=== PATIENT | female | born 1940 | race Caucasian/White ===

== ENCOUNTER 2016-11-25 12:38 | Emergency (ER) | payer OTHER, MEDICARE ==
[~2016-11-25] VITALS: Ht 160 cm; Wt 90.0 kg
[~2016-11-25 12:38] MED LIST: ALEVE220 M2 PO; AMITIZA24 MICROGR PO; AMLODIPINE BES2.5 MG PO; AMOX TR-K CLV1 EAC4 PO; AMOXICILLIN500 MG PO; ANASPAZ0.125 MG PO; BACTRIM,SEPT1 TABLE1 PO; BENAZEPRIL HCL5 MG PO; BENTYL20 MG PO; CELEXA20 MG PO; CIPRO500 MG PO; CITALOPRAM HBR10 M1 PO; CYANOCOBALAM1000 MCG PO; DICYCLOMINE HCL10 MG PO; DILAUDID2 MG PO; Ecotrin PO; FLAGYL500 MG PO; HYOMAX0.125 MG PO; LEVAQUIN750 MG PO; LEVOTHYROXIN; LEVOTHYROXINE; LEVOTHYROXINE100 MCG PO; Lotensin PO; MOTRIN600 MG PO; NAPROSYN500 MG PO; PRILOSEC20 MG PO; TORADOL10 MG PO; ULTRACET1 TABLET PO; VALIUM2 MG PO; VITAMIN D-32000 UNI2 PO; VITAMIN D32000 UNIT PO; ZOFRAN4 MG PO; [UNRECOGNIZED DRUG - OTHER]
[2016-11-25 15:41] VITALS: BP 123/55
== END 2016-11-25 15:42 | disposition home or self-care (01) ==
LOC: EME → EDBD 12:38 → EME 12:38
DX: S06.0X0A Concussion without loss of consciousness, initial encounter (principal); M54.89 Other dorsalgia; R07.81 Pleurodynia; W01.0XXA Fall on same level from slipping, tripping and stumbling without subsequent striking against object, initial encounter; I10 Essential (primary) hypertension; E03.9 Hypothyroidism, unspecified
CPT/HCPCS: 70450; 71020; 99281; 99284

== ENCOUNTER 2017-01-28 20:08 | Emergency (ER) | payer OTHER, MEDICARE ==
[~2017-01-28] VITALS: Ht 162.6 cm; Wt 90.5 kg
[2017-01-28] MEDS ORDERED: KEFLEX500 MG PO (23:23)
[2017-01-28] MEDS ORDERED: NORCO 5/3251 TABLET PO (23:23)
[2017-01-28 23:35] VITALS: BP 126/86
== END 2017-01-29 00:07 | disposition home or self-care (01) ==
LOC: EME 20:08
DX: L03.115 Cellulitis of right lower limb (principal); I10 Essential (primary) hypertension; K21.9 Gastro-esophageal reflux disease without esophagitis; W19.XXXD Unspecified fall, subsequent encounter; Z88.6 Allergy status to analgesic agent
CPT/HCPCS: 99281; 99284

== ENCOUNTER → 2017-05-11 | Outpatient (CLI) | payer OTHER, MEDICARE ==
[~2017-05-11] VITALS: Ht 164.5 cm; Wt 88.5 kg
[~2017-05-11] MED LIST changes: +B-COMPLEX-VITA1 EACH PO; +BENTYL10 MG PO; +ELIDEL 1% CREAM30 GM TP; +KEFLEX500 MG PO; +MOBIC15 MG PO; +MYRBETRIQ25 MG PO; +NORCO 5/3251 TABLET PO; +TEMOVATE 0.05%30 GM TP; +TYLENOL EXTRA500 MG PO
== END | disposition home or self-care (01) ==
LOC: AMB 08:30
PROC: 0DJD8ZZ Inspection of Lower Intestinal Tract, Via Natural or Artificial Opening Endoscopic (ICD-10-PCS; principal; 2017-05-11)
DX: K57.32 Diverticulitis of large intestine without perforation or abscess without bleeding (principal); K64.8 Other hemorrhoids; Z80.0 Family history of malignant neoplasm of digestive organs; K58.0 Irritable bowel syndrome with diarrhea; K21.9 Gastro-esophageal reflux disease without esophagitis; I10 Essential (primary) hypertension; E78.5 Hyperlipidemia, unspecified; E03.9 Hypothyroidism, unspecified; H35.30 Unspecified macular degeneration; G47.33 Obstructive sleep apnea (adult) (pediatric); M85.80 Other specified disorders of bone density and structure, unspecified site; R73.03 Prediabetes; G25.81 Restless legs syndrome; F40.9 Phobic anxiety disorder, unspecified; Z96.659 Presence of unspecified artificial knee joint; Z90.710 Acquired absence of both cervix and uterus; Z90.49 Acquired absence of other specified parts of digestive tract; Z86.718 Personal history of other venous thrombosis and embolism

== ENCOUNTER 2017-12-09 15:36 | Emergency (ER) | payer OTHER, MEDICARE ==
[~2017-12-09] VITALS: Ht 160 cm; Wt 88.8 kg
[2017-12-09 16:17] LABS: HEMATOCRIT 41.9 % (36.0-46.0); HEMOGLOBIN 13.6 G/DL (11.9-15.5); MCH 30.4 PG (29.0-34.0); MCHC 32.5 G/DL (30.0-36.0); MCV 93.7 FL (83-99); PLATELET COUNT 269 K/uL (156-360); RBC DIS.WIDTH-CV 12.4 % (11.8-14.6); RED BLOOD COUNT 4.47 M/uL (3.80-5.20); WHITE BLOOD COUNT 8.6 K/uL (4.1-10.2)
[2017-12-09 16:25] LABS: ALBUMIN 3.9 g/dL (3.2-4.8); CHLORIDE 105 mEq/L (99-109); POTASSIUM 4.1 mEq/L (3.7-5.4); SODIUM 140 mEq/L (136-147)
[2017-12-09 16:27] LABS: GLUCOSE 102 mg/dL (70-99)
[2017-12-09 16:28] LABS: TOTAL PROTEIN 6.9 g/dL (6.4-8.3)
[2017-12-09 16:29] LABS: TOTAL BILIRUBIN 1.1 mg/dL (0.0-1.0)
[2017-12-09 16:31] LABS: ALKALINE PHOSPHATASE 83 IU/L (3-129); CREATININE 0.8 mg/dL (0.6-1.3); GFR ESTIMATE (CALCULATED) > 59 mL/min/
[2017-12-09 16:32] LABS: UREA NITROGEN (BUN) 9 mg/dL (9-23)
[2017-12-09 16:33] LABS: AST (GOT) 16 IU/L (2-34)
[2017-12-09 16:34] LABS: ALT (GPT) 13 IU/L (3-49)
[2017-12-09 16:38] LABS: LIPASE 24 U/L (1.0-51.0)
[2017-12-09] MEDS ORDERED: ZOFRAN4 MG PO (17:46)
[2017-12-09] MEDS ORDERED: AUGMENTIN875 MG PO (17:46)
[2017-12-09 18:01] VITALS: BP 133/70
== END 2017-12-09 18:01 | disposition home or self-care (01) ==
LOC: EME 15:36
DX: K57.32 Diverticulitis of large intestine without perforation or abscess without bleeding (principal); K58.9 Irritable bowel syndrome, unspecified; R94.31 Abnormal electrocardiogram [ECG] [EKG]; E03.9 Hypothyroidism, unspecified; F41.9 Anxiety disorder, unspecified; Z85.828 Personal history of other malignant neoplasm of skin; Z90.49 Acquired absence of other specified parts of digestive tract; Z96.651 Presence of right artificial knee joint; Z88.5 Allergy status to narcotic agent; Z91.018 Allergy to other foods; Z88.1 Allergy status to other antibiotic agents
CPT/HCPCS: 74177; 80053; 81003; 83690; 85027; 93005; 99281; 99284; J2405; J7040

== ENCOUNTER 2018-02-17 13:49 | Emergency (ER) | payer OTHER, MEDICARE ==
[~2018-02-17] VITALS: Ht 160 cm; Wt 84.4 kg
[~2018-02-17 13:49] MED LIST changes: +AUGMENTIN875 MG PO
[2018-02-17 14:49] LABS: HEMATOCRIT 41.2 % (36.0-46.0); HEMOGLOBIN 13.9 G/DL (11.9-15.5); MCHC 33.7 G/DL (30.0-36.0); MCV 91.8 FL (83-99); PLATELET COUNT 344 K/uL (156-360); RBC DIS.WIDTH-CV 12.7 % (11.8-14.6); RBC DIS.WIDTH-SD 42.9 % (39-53); RED BLOOD COUNT 4.49 M/uL (3.80-5.20); WHITE BLOOD COUNT 7.8 K/uL (4.1-10.2)
[2018-02-17 14:58] LABS: ALBUMIN 3.8 g/dL (3.2-4.8); CHLORIDE 106 mEq/L (99-109); POTASSIUM 3.9 mEq/L (3.7-5.4); SODIUM 141 mEq/L (136-147)
[2018-02-17 15:01] LABS: GLUCOSE 101 mg/dL (70-99); TOTAL PROTEIN 6.5 g/dL (6.4-8.3)
[2018-02-17 15:03] LABS: TOTAL BILIRUBIN 1.2 mg/dL (0.0-1.0)
[2018-02-17 15:04] LABS: ALKALINE PHOSPHATASE 79 IU/L (3-129); CREATININE 0.8 mg/dL (0.6-1.3); GFR ESTIMATE (CALCULATED) > 59 mL/min/
[2018-02-17 15:05] LABS: UREA NITROGEN (BUN) 13 mg/dL (9-23)
[2018-02-17 15:06] LABS: AST (GOT) 18 IU/L (2-34)
[2018-02-17 15:07] LABS: ALT (GPT) 18 IU/L (3-49)
[2018-02-17 15:07] LABS: APPEARANCE CLOUDY ((CLEAR)); BILIRUBIN NEGATIVE; BLOOD NEGATIVE; COLOR AMBER ((YELLOW)); GLUCOSE (STRIP) NEGATIVE; KETONES 5; LEUKOCYTES TRACE; NITRITE NEGATIVE; PROTEIN (STRIP) 30; SPECIFIC GRAVITY 1.028 (1.000-1.030); UROBILINOGEN 0.2 MG/DL (0.2-1.0)
[2018-02-17 15:08] LABS: LIPASE 31 U/L (1.0-51.0)
[2018-02-17 15:29] LABS: RED BLOOD CELLS 0-5 /HPF (0-5)
[2018-02-17 15:30] LABS: EPITHELIAL CELLS 1+ /HPF
[2018-02-17 15:31] LABS: BACTERIA 2+ /HPF; HYALINE CASTS 0-5 /LPF; MUCUS 3+ /LPF; UCUL ADDED? YES
[2018-02-17] MEDS ORDERED: ZOFRAN4 MG PO (16:58)
[2018-02-17] MEDS ORDERED: BENTYL20 MG PO (16:58)
[2018-02-17 17:24] VITALS: BP 121/71
== END 2018-02-17 17:32 | disposition home or self-care (01) ==
LOC: EME 13:49
PROVIDERS: Nurse Practitioner Family
DX: R10.31 Right lower quadrant pain (principal); R11.2 Nausea with vomiting, unspecified; R19.7 Diarrhea, unspecified; K57.30 Diverticulosis of large intestine without perforation or abscess without bleeding; K76.0 Fatty (change of) liver, not elsewhere classified; Z90.49 Acquired absence of other specified parts of digestive tract; I10 Essential (primary) hypertension; E03.9 Hypothyroidism, unspecified; Z85.828 Personal history of other malignant neoplasm of skin
CPT/HCPCS: 74177; 80053; 81003; 83690; 85027; 87086; 99281; 99284; J0500; J1885; J2405; J7030

== ENCOUNTER 2018-02-21 10:57 | Emergency (ER) | payer OTHER, MEDICARE ==
[~2018-02-21] VITALS: Ht 160 cm; Wt 83.7 kg
[2018-02-21 11:38] LABS: HEMATOCRIT 39.1 % (36.0-46.0); HEMOGLOBIN 13.5 G/DL (11.9-15.5); MCH 31.5 PG (29.0-34.0); MCHC 34.5 G/DL (30.0-36.0); MCV 91.4 FL (83-99); PLATELET COUNT 291 K/uL (156-360); RBC DIS.WIDTH-CV 12.5 % (11.8-14.6); RBC DIS.WIDTH-SD 41.1 % (39-53); RED BLOOD COUNT 4.28 M/uL (3.80-5.20); WHITE BLOOD COUNT 11.6 K/uL (4.1-10.2)
[2018-02-21 11:51] LABS: ALBUMIN 3.8 g/dL (3.2-4.8); CHLORIDE 104 mEq/L (99-109); POTASSIUM 3.7 mEq/L (3.7-5.4); SODIUM 138 mEq/L (136-147)
[2018-02-21 11:53] LABS: GLUCOSE 123 mg/dL (70-99); TOTAL PROTEIN 6.5 g/dL (6.4-8.3)
[2018-02-21 11:55] LABS: TOTAL BILIRUBIN 1.4 mg/dL (0.0-1.0)
[2018-02-21 11:57] LABS: ALKALINE PHOSPHATASE 76 IU/L (3-129); CREATININE 0.8 mg/dL (0.6-1.3); GFR ESTIMATE (CALCULATED) > 59 mL/min/
[2018-02-21 11:58] LABS: UREA NITROGEN (BUN) 9 mg/dL (9-23)
[2018-02-21 11:59] LABS: AST (GOT) 19 IU/L (2-34)
[2018-02-21 12:00] LABS: ALT (GPT) 18 IU/L (3-49)
[2018-02-21 12:20] LABS: LIPASE 19 U/L (1.0-51.0)
[2018-02-21 13:11] LABS: APPEARANCE CLEAR ((CLEAR)); BILIRUBIN NEGATIVE; BLOOD SMALL; COLOR STRAW ((YELLOW)); GLUCOSE (STRIP) NEGATIVE; KETONES 20; LEUKOCYTES TRACE; NITRITE NEGATIVE; PROTEIN (STRIP) NEGATIVE; SPECIFIC GRAVITY 1.006 (1.000-1.030); UROBILINOGEN 0.2 MG/DL (0.2-1.0)
[2018-02-21 13:12] LABS: BACTERIA RARE /HPF; EPITHELIAL CELLS RARE /HPF; MUCUS TRACE /LPF; RED BLOOD CELLS 0-5 /HPF (0-5); UCUL ADDED? NO; WHITE BLOOD CELLS 0-5 /HPF (0-5)
[2018-02-21] MEDS ORDERED: CARAFATE100 MG/ML PO (15:20)
[2018-02-21] MEDS ORDERED: AUGMENTIN875 MG PO (15:20)
[2018-02-21 15:35] VITALS: BP 128/78
== END 2018-02-21 15:39 | disposition home or self-care (01) ==
LOC: EME 10:57
DX: K57.32 Diverticulitis of large intestine without perforation or abscess without bleeding (principal); E03.9 Hypothyroidism, unspecified; F41.9 Anxiety disorder, unspecified; K58.9 Irritable bowel syndrome, unspecified; Z96.651 Presence of right artificial knee joint; Z85.828 Personal history of other malignant neoplasm of skin; Z88.1 Allergy status to other antibiotic agents; Z88.5 Allergy status to narcotic agent
CPT/HCPCS: 74177; 80053; 81003; 83605; 83690; 85027; 93005; 99281; 99285